=== PATIENT | female | born 1960 | race Caucasian/White ===

== ENCOUNTER 2019-01-03 11:36 | Inpatient (IN) ==
[2019-01-03 14:32] LABS: Bilirubin,Urine Negative (Negative); Blood,Urine Negative (Negative); Clarity,Urine Cloudy (Clear); Color,Urine Yellow (Yellow); Glucose,Urine (UA) Normal (Normal); Ketones,Urine Negative (Negative); Leukocyte Esterase,Urine Negative (Negative); Nitrite,Urine Negative (Negative); PH,Urine 6.5 pH Units (5.0-8.0); Protein,Urine Trace mg/dL (Neg-Trace); Specific Gravity,Urine 1.027 (1.010-1.025); Urobilinogen,Urine Normal (Normal)
[2019-01-03 14:35] LABS: Bacteria,Urine None Seen per hpf (None-Few); Hyaline Casts,Urine None Seen per lpf (None-Few); RBC,Urine 0-3 per hpf (0-3); Squamous Epithelial Cell,Urine Many per lpf (None-Few)
[2019-01-03 14:40] LABS: Amphetamine Screen,Urine Negative ng/mL (Cutoff=1000); Barbiturate Screen,Urine Negative ng/mL (Cutoff=200); Benzodiazepines Screen,Urine Negative ng/mL (Cutoff=200); Cannabinoid Screen,Urine Negative ng/mL (Cutoff = 50); Cocaine Screen,Urine Negative ng/mL (Cutoff= 300); Opiate Screen,Urine Negative ng/mL (Cutoff=300); Phencyclidine Screen,Urine Negative ng/mL (Cutoff=25)
[2019-01-03] MEDS ORDERED: *HR* Promethazine 25 MG/ML VIAL IVP ONE (14:53)
[2019-01-03] MEDS ORDERED: 0.9 % Sodium Chloride 1,000 ML IVC ONE (14:53)
[2019-01-03 15:09] LABS: Basophils # 0.1 K/mcL (0.0-0.2); Basophils % 0.4 %; Eosinophils # 0.6 K/mcL (0.0-0.6); Eosinophils % 4.3 %; Hematocrit 37.5 % (35.3-44.9); Hemoglobin 12.1 g/dL (11.5-15.4); Immature Granulocytes % 0.4 % (0-4); Lymphocytes # 1.5 K/mcL (0.6-4.6); Lymphocytes % 10.5 %; Mean Corpuscular HGB Conc 32.3 g/dL (31.6-35.5); Mean Corpuscular Hemoglobin 27.4 pg (28.0-33.3); Mean Platelet Volume 10.5 fL (9.4-12.4); Monocytes # 0.6 K/mcL (0.0-1.3); Monocytes % 4.4 %; Neutrophils # 11.4 K/mcL (1.6-8.9); Platelet Count 390 K/mcL (140-400); Red Blood Count 4.41 M/mcL (3.82-4.97); Red Cell Distribution Width 16.2 % (11.5-14.5); White Blood Count 14.2 K/mcL (4.3-11.1)
[2019-01-03 15:28] LABS: Albumin 3.2 g/dL (3.5-5.7); Albumin/Globulin Ratio 1.2 (1.1-2.2); BUN/Creatinine Ratio 30 (6-26); Bilirubin,Direct 0.1 mg/dL (0.0-0.2); Bilirubin,Indirect 0.3 mg/dL (0.0-1.0); Bilirubin,Total 0.4 mg/dL (0.3-1.0); Blood Urea Nitrogen 10 mg/dL (6-20); Calcium 8.3 mg/dL (8.6-10.3); Carbon Dioxide 24 mEq/L (23-29); Chloride 104 mEq/L (98-107); Globulin 2.7 g/dL (2.4-3.5); Glucose 89 mg/dL (70-105); Lipase 14 Units/L (11-82); Osmolality,Calculated 281 (280-300); Potassium 3.5 mEq/L (3.5-5.1); Sodium 136 mEq/L (136-145); Total Protein 5.9 g/dL (6.4-8.9); eGFR For African Americans > 60 (> 60); eGFR For Non-African Americans > 60 (> 60)
[2019-01-03 15:29] LABS: Acetaminophen < 10 mcg/mL (10-20); Ethanol < 10 mg/dL (Less than 10); Salicylate < 2.5 mg/dL (15.0-30.0)
[2019-01-03 15:42] LABS: Thyroid Stimulating Hormone 0.891 mcIU/mL (0.340-5.600)
[2019-01-03] MEDS ORDERED: Naloxone 0.4 MG/ML INJ IVP PRN (17:05)
[2019-01-03] MEDS ORDERED: Ipratropium/Albuterol Neb 3 ML IH PRN (17:53)
[2019-01-03] MEDS ORDERED: Nicotine 14 MG PATCH.TD24 TD PRN (17:54)
[2019-01-03] MEDS: Gabapentin 300 MG CAPSULE PO SCH (21:07)
[2019-01-03] MEDS: rOPINIRole 1 MG TABLET PO SCH (21:07)
[2019-01-03] MEDS: Mirtazapine 15 MG TABLET PO SCH (21:07)
[2019-01-03] MEDS: Ondansetron 4 MG/2 ML VIAL IVP PRN (23:09)
[2019-01-04 05:11] LABS: Basophils # 0.1 K/mcL (0.0-0.2); Basophils % 0.4 %; Eosinophils # 0.9 K/mcL (0.0-0.6); Eosinophils % 7.5 %; Hematocrit 36.3 % (35.3-44.9); Hemoglobin 11.6 g/dL (11.5-15.4); Immature Granulocytes % 0.4 % (0-4); Lymphocytes # 1.7 K/mcL (0.6-4.6); Lymphocytes % 15.2 %; Mean Corpuscular Hemoglobin 27.3 pg (28.0-33.3); Mean Corpuscular Volume 85.4 fL (83.0-100.0); Mean Platelet Volume 10.8 fL (9.4-12.4); Monocytes # 0.7 K/mcL (0.0-1.3); Neutrophils # 7.9 K/mcL (1.6-8.9); Platelet Count 366 K/mcL (140-400); Red Blood Count 4.25 M/mcL (3.82-4.97); Red Cell Distribution Width 16.4 % (11.5-14.5); Segmented Neutrophils % 70.5 %; White Blood Count 11.3 K/mcL (4.3-11.1)
[2019-01-04 05:21] LABS: BUN/Creatinine Ratio 15 (6-26); Blood Urea Nitrogen 5 mg/dL (6-20); Calcium 8.2 mg/dL (8.6-10.3); Carbon Dioxide 24 mEq/L (23-29); Chloride 110 mEq/L (98-107); Glucose 113 mg/dL (70-105); Magnesium 1.6 mg/dL (1.6-2.6); Osmolality,Calculated 288 (280-300); Phosphorous 3.4 mg/dL (2.7-4.5); Potassium 3.4 mEq/L (3.5-5.1); Sodium 140 mEq/L (136-145); eGFR For African Americans > 60 (> 60); eGFR For Non-African Americans > 60 (> 60)
[2019-01-04] MEDS: Ondansetron 4 MG/2 ML VIAL IVP PRN ×2 (06:55→14:52)
[2019-01-04] MEDS: Gabapentin 300 MG CAPSULE PO SCH ×2 (09:57→20:27)
[2019-01-04] MEDS: rOPINIRole 1 MG TABLET PO SCH ×2 (09:57→20:26)
[2019-01-04] MEDS: 0.9 % Sodium Chloride 1,000 ML IVC SCH (14:40)
[2019-01-04] MEDS: Budesonide/Formoterol 160/4.5 1 PUFF INH IH SCH (19:42)
[2019-01-04] MEDS: Mirtazapine 15 MG TABLET PO SCH (20:26)
[2019-01-05 01:53] LABS: Basophils # 0.1 K/mcL (0.0-0.2); Basophils % 0.3 %; Eosinophils # 0.4 K/mcL (0.0-0.6); Eosinophils % 2.2 %; Hemoglobin 11.4 g/dL (11.5-15.4); Immature Granulocytes % 0.4 % (0-4); Lymphocytes % 5.2 %; Mean Corpuscular HGB Conc 31.7 g/dL (31.6-35.5); Mean Corpuscular Hemoglobin 27.4 pg (28.0-33.3); Mean Corpuscular Volume 86.5 fL (83.0-100.0); Mean Platelet Volume 11.5 fL (9.4-12.4); Monocytes # 1.1 K/mcL (0.0-1.3); Monocytes % 5.4 %; Neutrophils # 17.4 K/mcL (1.6-8.9); Nucleated Red Blood Cells 0.1 /100 WBC (0); Platelet Count 352 K/mcL (140-400); Red Blood Count 4.16 M/mcL (3.82-4.97); Red Cell Distribution Width 16.1 % (11.5-14.5); Segmented Neutrophils % 86.5 %
[2019-01-05 01:56] LABS: BUN/Creatinine Ratio 11 (6-26); Blood Urea Nitrogen 4 mg/dL (6-20); Calcium 7.9 mg/dL (8.6-10.3); Carbon Dioxide 26 mEq/L (23-29); Chloride 103 mEq/L (98-107); Glucose 111 mg/dL (70-105); Magnesium 2.1 mg/dL (1.6-2.6); Osmolality,Calculated 278 (280-300); Phosphorous 2.8 mg/dL (2.7-4.5); Sodium 135 mEq/L (136-145); eGFR For African Americans > 60 (> 60); eGFR For Non-African Americans > 60 (> 60)
[2019-01-05 02:02] LABS: Lymphocytes # 1.1 K/mcL (0.6-4.6); White Blood Count 20.1 K/mcL (4.3-11.1)
[2019-01-05] MEDS: Ondansetron 4 MG/2 ML VIAL IVP PRN ×2 (05:40→17:05)
[2019-01-05] MEDS: Budesonide/Formoterol 160/4.5 1 PUFF INH IH SCH ×2 (07:53→21:19)
[2019-01-05] MEDS: rOPINIRole 1 MG TABLET PO SCH ×2 (08:43→20:56)
[2019-01-05] MEDS: Gabapentin 300 MG CAPSULE PO SCH ×2 (08:43→20:56)
[2019-01-05] MEDS: 0.9 % Sodium Chloride 1,000 ML IVC SCH (11:32)
[2019-01-05] MEDS ORDERED: cefTRIAXone 1,000 MG in 0.9 % Sodium Chloride Mini Bag 100 ML IVPB ONE (16:33)
[2019-01-05] MEDS ORDERED: methylPREDNISolone 125 MG/2 ML VIAL IVP ONE (16:33)
[2019-01-05] MEDS: clonazePAM 0.5 MG TABLET PO PRN (20:56)
[2019-01-05] MEDS: predniSONE 10 MG TABLET PO SCH (20:56)
[2019-01-05] MEDS: Mirtazapine 15 MG TABLET PO SCH (20:56)
[2019-01-05] MEDS ORDERED: Mirtazapine 15 MG TABLET PO SCH (21:00)
[2019-01-05] MEDS ORDERED: rOPINIRole 1 MG TABLET PO SCH (21:00)
[2019-01-06 01:12] LABS: Basophils % 0.1 %; Hematocrit 34.6 % (35.3-44.9); Hemoglobin 10.7 g/dL (11.5-15.4); Immature Granulocytes % 0.6 % (0-4); Lymphocytes # 0.3 K/mcL (0.6-4.6); Lymphocytes % 1.2 %; Mean Corpuscular HGB Conc 30.9 g/dL (31.6-35.5); Mean Corpuscular Hemoglobin 27.4 pg (28.0-33.3); Mean Corpuscular Volume 88.5 fL (83.0-100.0); Mean Platelet Volume 11.4 fL (9.4-12.4); Monocytes # 0.1 K/mcL (0.0-1.3); Monocytes % 0.2 %; Neutrophils # 23.7 K/mcL (1.6-8.9); Platelet Count 301 K/mcL (140-400); Red Blood Count 3.91 M/mcL (3.82-4.97); Red Cell Distribution Width 15.9 % (11.5-14.5); Segmented Neutrophils % 97.9 %; White Blood Count 24.2 K/mcL (4.3-11.1)
[2019-01-06 01:34] LABS: Alanine Aminotransferase 9 Units/L (7-52); Albumin 2.9 g/dL (3.5-5.7); Albumin/Globulin Ratio 1.1 (1.1-2.2); Alkaline Phosphatase 69 Units/L (34-104); Aspartate Amino Transferase 11 Units/L (13-39); BUN/Creatinine Ratio 21 (6-26); Bilirubin,Total 0.3 mg/dL (0.3-1.0); Blood Urea Nitrogen 8 mg/dL (6-20); Calcium 8.2 mg/dL (8.6-10.3); Carbon Dioxide 25 mEq/L (23-29); Chloride 103 mEq/L (98-107); Globulin 2.7 g/dL (2.4-3.5); Glucose 173 mg/dL (70-105); Osmolality,Calculated 282 (280-300); Potassium 3.5 mEq/L (3.5-5.1); Sodium 135 mEq/L (136-145); Total Protein 5.6 g/dL (6.4-8.9); eGFR For African Americans > 60 (> 60); eGFR For Non-African Americans > 60 (> 60)
[2019-01-06 02:30] LABS: Platelet Estimate Normal (Normal)
[2019-01-06] MEDS: D5% in Lactated Ringers 1,000 ML IVC SCH (08:15)
[2019-01-06] MEDS: rOPINIRole 1 MG TABLET PO SCH ×2 (08:16→20:47)
[2019-01-06] MEDS: Gabapentin 300 MG CAPSULE PO SCH ×2 (08:16→20:47)
[2019-01-06] MEDS: Budesonide/Formoterol 160/4.5 1 PUFF INH IH SCH ×2 (08:18→22:23)
[2019-01-06] MEDS ORDERED: NON-FORMULARY MEDICATION 1 EACH EACH (Omeprazole [Prilosec] 40 MG) PO SCH (09:00)
[2019-01-06] MEDS ORDERED: Isovue-370 500 ML BOTTLE IVP ONE (10:02)
[2019-01-06] MEDS: Mirtazapine 15 MG TABLET PO SCH (20:47)
[2019-01-06] MEDS: predniSONE 10 MG TABLET PO SCH (20:47)
[2019-01-06] MEDS: Ondansetron 4 MG/2 ML VIAL IVP PRN (20:55)
[2019-01-06] MEDS: clonazePAM 0.5 MG TABLET PO PRN (20:55)
[2019-01-07 01:43] LABS: Basophils % 0.1 %; Hematocrit 31.9 % (35.3-44.9); Hemoglobin 9.7 g/dL (11.5-15.4); Immature Granulocytes % 0.8 % (0-4); Lymphocytes # 0.7 K/mcL (0.6-4.6); Lymphocytes % 3.1 %; Mean Corpuscular HGB Conc 30.4 g/dL (31.6-35.5); Mean Corpuscular Hemoglobin 27.2 pg (28.0-33.3); Mean Corpuscular Volume 89.4 fL (83.0-100.0); Mean Platelet Volume 11.2 fL (9.4-12.4); Monocytes # 0.3 K/mcL (0.0-1.3); Monocytes % 1.5 %; Neutrophils # 20.1 K/mcL (1.6-8.9); Platelet Count 283 K/mcL (140-400); Red Blood Count 3.57 M/mcL (3.82-4.97); Red Cell Distribution Width 16.2 % (11.5-14.5); Segmented Neutrophils % 94.5 %; White Blood Count 21.3 K/mcL (4.3-11.1)
[2019-01-07 02:04] LABS: BUN/Creatinine Ratio 6 (6-26); Blood Urea Nitrogen 2 mg/dL (6-20); Calcium 8.1 mg/dL (8.6-10.3); Carbon Dioxide 30 mEq/L (23-29); Chloride 105 mEq/L (98-107); Glucose 130 mg/dL (70-105); Magnesium 1.6 mg/dL (1.6-2.6); Osmolality,Calculated 284 (280-300); Phosphorous 3.3 mg/dL (2.7-4.5); Potassium 4.2 mEq/L (3.5-5.1); Sodium 138 mEq/L (136-145); eGFR For African Americans > 60 (> 60); eGFR For Non-African Americans > 60 (> 60)
[2019-01-07 02:05] LABS: Alanine Aminotransferase 9 Units/L (7-52); Albumin 2.7 g/dL (3.5-5.7); Albumin/Globulin Ratio 1.1 (1.1-2.2); Alkaline Phosphatase 66 Units/L (34-104); Aspartate Amino Transferase 9 Units/L (13-39); BUN/Creatinine Ratio 6 (6-26); Bilirubin,Total 0.2 mg/dL (0.3-1.0); Blood Urea Nitrogen 2 mg/dL (6-20); Calcium 8.1 mg/dL (8.6-10.3); Carbon Dioxide 29 mEq/L (23-29); Chloride 105 mEq/L (98-107); Globulin 2.5 g/dL (2.4-3.5); Glucose 129 mg/dL (70-105); Osmolality,Calculated 284 (280-300); Potassium 4.2 mEq/L (3.5-5.1); Sodium 138 mEq/L (136-145); Total Protein 5.2 g/dL (6.4-8.9); eGFR For African Americans > 60 (> 60); eGFR For Non-African Americans > 60 (> 60)
[2019-01-07] MEDS: D5% in Lactated Ringers 1,000 ML IVC SCH ×4 (03:36→21:00)
[2019-01-07] MEDS: 0.9 % Sodium Chloride 1,000 ML IVC SCH (05:20)
[2019-01-07] MEDS: Budesonide/Formoterol 160/4.5 1 PUFF INH IH SCH ×2 (07:25→20:11)
[2019-01-07] MEDS: Gabapentin 300 MG CAPSULE PO SCH ×3 (08:04→20:53)
[2019-01-07] MEDS: rOPINIRole 1 MG TABLET PO SCH ×3 (08:04→20:53)
[2019-01-07] MEDS: Tiotropium 18 MCG inhalation IH SCH ×2 (08:48→16:41)
[2019-01-07] MEDS: clonazePAM 0.5 MG TABLET PO PRN (09:56)
[2019-01-07] MEDS: Ondansetron 4 MG/2 ML VIAL IVP PRN (10:08)
[2019-01-07] MEDS ORDERED: *HR* FentaNYL (PF) 100 MCG/2 ML VIAL ONE (15:05)
[2019-01-07] MEDS ORDERED: *HR* Midazolam HCl 5 MG/5 ML VIAL IVP ONE ×2 (15:05→15:06)
[2019-01-07] MEDS ORDERED: *HR* FentaNYL (PF) 100 MCG/2 ML VIAL IVP ONE (15:06)
[2019-01-07] MEDS ORDERED: Simethicone 40 MG/0.6 ML MLS IR ONE (15:06)
[2019-01-07] MEDS ORDERED: ceFAZolin 1,000 MG in Water for inj. (sterile) 10 ML IVP ONE (15:07)
[2019-01-07] MEDS: Mirtazapine 15 MG TABLET PO SCH (20:53)
[2019-01-07] MEDS: predniSONE 10 MG TABLET PO SCH (20:54)
[2019-01-07] MEDS ORDERED: traMADol 50 MG TABLET PO ONE (21:51)
[2019-01-08 06:37] LABS: Basophils % 0.1 %; Hematocrit 29.9 % (35.3-44.9); Immature Granulocytes % 0.6 % (0-4); Lymphocytes # 0.7 K/mcL (0.6-4.6); Lymphocytes % 4.3 %; Mean Corpuscular HGB Conc 30.1 g/dL (31.6-35.5); Mean Corpuscular Hemoglobin 27.5 pg (28.0-33.3); Mean Corpuscular Volume 91.4 fL (83.0-100.0); Mean Platelet Volume 11.4 fL (9.4-12.4); Monocytes # 0.4 K/mcL (0.0-1.3); Monocytes % 2.7 %; Platelet Count 245 K/mcL (140-400); Red Blood Count 3.27 M/mcL (3.82-4.97); Red Cell Distribution Width 16.3 % (11.5-14.5); Segmented Neutrophils % 92.3 %; White Blood Count 16.2 K/mcL (4.3-11.1)
[2019-01-08 07:00] LABS: Alanine Aminotransferase 8 Units/L (7-52); Albumin 2.6 g/dL (3.5-5.7); Albumin/Globulin Ratio 1.2 (1.1-2.2); Alkaline Phosphatase 62 Units/L (34-104); Aspartate Amino Transferase 10 Units/L (13-39); BUN/Creatinine Ratio 13 (6-26); Bilirubin,Total 0.2 mg/dL (0.3-1.0); Blood Urea Nitrogen 4 mg/dL (6-20); Calcium 7.9 mg/dL (8.6-10.3); Carbon Dioxide 32 mEq/L (23-29); Chloride 103 mEq/L (98-107); Globulin 2.2 g/dL (2.4-3.5); Glucose 144 mg/dL (70-105); Osmolality,Calculated 289 (280-300); Sodium 140 mEq/L (136-145); Total Protein 4.8 g/dL (6.4-8.9); eGFR For African Americans > 60 (> 60); eGFR For Non-African Americans > 60 (> 60)
[2019-01-08 07:01] LABS: BUN/Creatinine Ratio 13 (6-26); Blood Urea Nitrogen 4 mg/dL (6-20); Carbon Dioxide 32 mEq/L (23-29); Chloride 103 mEq/L (98-107); Glucose 145 mg/dL (70-105); Magnesium 1.5 mg/dL (1.6-2.6); Osmolality,Calculated 289 (280-300); Phosphorous 3.7 mg/dL (2.7-4.5); Sodium 140 mEq/L (136-145); eGFR For African Americans > 60 (> 60); eGFR For Non-African Americans > 60 (> 60)
[2019-01-08] MEDS: Budesonide/Formoterol 160/4.5 1 PUFF INH IH SCH ×2 (07:27→21:25)
[2019-01-08 08:35] LABS: AFP Tumor Marker Non-Pregnant 1 ng/mL (0-9); Cancer Antigen-GI (CA 19-9) 10 U/mL (0-37)
[2019-01-08] MEDS: Gabapentin 300 MG CAPSULE PO SCH ×2 (08:48→20:49)
[2019-01-08] MEDS: rOPINIRole 1 MG TABLET PO SCH ×2 (08:48→20:50)
[2019-01-08] MEDS: D5% in Lactated Ringers 1,000 ML IVC SCH ×2 (08:51→23:08)
[2019-01-08] MEDS: Ondansetron 4 MG/2 ML VIAL IVP PRN ×2 (08:57→20:59)
[2019-01-08] MEDS: Mirtazapine 15 MG TABLET PO SCH (20:49)
[2019-01-08] MEDS: predniSONE 10 MG TABLET PO SCH (20:49)
[2019-01-08] MEDS: Tiotropium 18 MCG inhalation IH SCH (23:27)
[2019-01-09] MEDS: Ondansetron 4 MG/2 ML VIAL IVP PRN ×4 (04:07→20:12)
[2019-01-09 06:02] LABS: Hematocrit 31.6 % (35.3-44.9); Hemoglobin 9.3 g/dL (11.5-15.4); Mean Corpuscular HGB Conc 29.4 g/dL (31.6-35.5); Mean Corpuscular Volume 91.6 fL (83.0-100.0); Mean Platelet Volume 11.5 fL (9.4-12.4); Platelet Count 258 K/mcL (140-400); Red Blood Count 3.45 M/mcL (3.82-4.97); Red Cell Distribution Width 15.9 % (11.5-14.5); White Blood Count 14.6 K/mcL (4.3-11.1)
[2019-01-09 06:26] LABS: Alanine Aminotransferase 9 Units/L (7-52); Albumin 2.7 g/dL (3.5-5.7); Albumin/Globulin Ratio 1.2 (1.1-2.2); Alkaline Phosphatase 74 Units/L (34-104); Aspartate Amino Transferase 9 Units/L (13-39); BUN/Creatinine Ratio 11 (6-26); Bilirubin,Total 0.2 mg/dL (0.3-1.0); Blood Urea Nitrogen 4 mg/dL (6-20); Calcium 7.9 mg/dL (8.6-10.3); Carbon Dioxide 33 mEq/L (23-29); Chloride 104 mEq/L (98-107); Globulin 2.3 g/dL (2.4-3.5); Glucose 149 mg/dL (70-105); Osmolality,Calculated 292 (280-300); Potassium 3.8 mEq/L (3.5-5.1); Sodium 141 mEq/L (136-145); eGFR For African Americans > 60 (> 60); eGFR For Non-African Americans > 60 (> 60)
[2019-01-09] MEDS: Budesonide/Formoterol 160/4.5 1 PUFF INH IH SCH ×2 (07:13→21:13)
[2019-01-09 09:36] LABS: Magnesium 1.8 mg/dL (1.6-2.6)
[2019-01-09] MEDS: Gabapentin 300 MG CAPSULE PO SCH ×2 (09:42→19:59)
[2019-01-09] MEDS: rOPINIRole 1 MG TABLET PO SCH ×2 (09:42→19:59)
[2019-01-09] MEDS: clonazePAM 0.5 MG TABLET PO PRN ×2 (09:47→19:59)
[2019-01-09] MEDS: Magnesium Oxide 400 MG TABLET PO SCH ×2 (17:20→19:59)
[2019-01-09] MEDS: Tiotropium 18 MCG inhalation IH SCH (18:39)
[2019-01-09] MEDS: D5% in Lactated Ringers 1,000 ML IVC SCH (18:40)
[2019-01-09] MEDS: Mirtazapine 15 MG TABLET PO SCH (19:59)
[2019-01-09] MEDS: predniSONE 10 MG TABLET PO SCH (19:59)
[2019-01-10 02:00] LABS: Hematocrit 31.8 % (35.3-44.9); Hemoglobin 9.6 g/dL (11.5-15.4); Mean Corpuscular HGB Conc 30.2 g/dL (31.6-35.5); Mean Corpuscular Hemoglobin 27.4 pg (28.0-33.3); Mean Corpuscular Volume 90.6 fL (83.0-100.0); Mean Platelet Volume 11.2 fL (9.4-12.4); Platelet Count 267 K/mcL (140-400); Red Blood Count 3.51 M/mcL (3.82-4.97); Red Cell Distribution Width 15.9 % (11.5-14.5); White Blood Count 15.8 K/mcL (4.3-11.1)
[2019-01-10 02:21] LABS: Magnesium 1.8 mg/dL (1.6-2.6); Phosphorous 3.9 mg/dL (2.7-4.5)
[2019-01-10 02:22] LABS: Alanine Aminotransferase 9 Units/L (7-52); Albumin 2.7 g/dL (3.5-5.7); Albumin/Globulin Ratio 1.1 (1.1-2.2); Alkaline Phosphatase 69 Units/L (34-104); Aspartate Amino Transferase 9 Units/L (13-39); BUN/Creatinine Ratio 18 (6-26); Bilirubin,Total 0.2 mg/dL (0.3-1.0); Blood Urea Nitrogen 6 mg/dL (6-20); Calcium 8.2 mg/dL (8.6-10.3); Carbon Dioxide 33 mEq/L (23-29); Chloride 101 mEq/L (98-107); Globulin 2.4 g/dL (2.4-3.5); Glucose 138 mg/dL (70-105); Osmolality,Calculated 288 (280-300); Potassium 4.3 mEq/L (3.5-5.1); Sodium 139 mEq/L (136-145); Total Protein 5.1 g/dL (6.4-8.9); eGFR For African Americans > 60 (> 60); eGFR For Non-African Americans > 60 (> 60)
[2019-01-10] MEDS: Ondansetron 4 MG/2 ML VIAL IVP PRN ×3 (03:38→23:39)
[2019-01-10] MEDS ORDERED: Acetaminophen IV 500 MG/50 ML INFUS..BTL IVPB ONE (05:25)
[2019-01-10] MEDS: Budesonide/Formoterol 160/4.5 1 PUFF INH IH SCH ×2 (07:42→21:07)
[2019-01-10] MEDS: rOPINIRole 1 MG TABLET PO SCH ×2 (08:16→20:06)
[2019-01-10] MEDS: Magnesium Oxide 400 MG TABLET PO SCH ×3 (08:16→20:07)
[2019-01-10] MEDS: Gabapentin 300 MG CAPSULE PO SCH ×2 (08:16→20:07)
[2019-01-10] MEDS: Tiotropium 18 MCG inhalation IH SCH (15:54)
[2019-01-10] MEDS: predniSONE 10 MG TABLET PO SCH (20:05)
[2019-01-10] MEDS: Mirtazapine 15 MG TABLET PO SCH (20:07)
[2019-01-11] MEDS: Ondansetron 4 MG/2 ML VIAL IVP PRN (05:57)
[2019-01-11 07:22] VITALS: BP 171/79
[2019-01-11] MEDS: Magnesium Oxide 400 MG TABLET PO SCH (07:31)
[2019-01-11] MEDS: rOPINIRole 1 MG TABLET PO SCH (07:31)
[2019-01-11] MEDS: Gabapentin 300 MG CAPSULE PO SCH (07:31)
[2019-01-11] MEDS: Budesonide/Formoterol 160/4.5 1 PUFF INH IH SCH (08:19)
== END 2019-01-11 12:10 | DRG 254 ==
LOC: EMEROOARM 11:36 → 3BNU 11:36 → SUATTDRO 17:22 → 3BNU 17:28 → SUATTDRO 01-06 15:29
PROVIDERS: ADMIT Student in an Organized Health Care Education/Training Program; ATTEND Internal Medicine